=== PATIENT | male | born 1995 | race Caucasian/White ===

== ENCOUNTER 2017-07-31 | Emergency (ER) | payer OTHER ==
[2017-07-31 00:31] VITALS: BP 128/83; PULSE 72; TEMP 98.4; BMI 29.7
--- NOTE | 2017-07-31 00:36 | PDOC ---
History of Present Illness - General Chief Complaint: Sore Throat Stated Complaint: FEVER/COUGHING Time Seen by Provider: 07/31/17 00:35 History Source: Patient - History of Present Illness Initial Comments: 07/31/17 01:45 22 year old male with sore throat and headache x 2 days. denies fever, NVD, abdominal pain Past History - Past Medical History Allergies/Adverse Reactions: Allergies Allergy/AdvReac Type Severity Reaction Status Date / Time No Known Allergies Allergy Verified 07/31/17 00:31 Home Medications: Ambulatory Orders Fluticasone Prop 0.05% Nasal [Flonase -] 1 - 2 spray NS DAILY #1 spray.pump Ibuprofen 400 mg PO QID PRN #20 tablet 07/31/17 - Suicide/Smoking/Psychosocial Hx Smoking History: Never smoked Have you smoked in the past 12 months: No Information on smoking cessation initiated: No Hx Alcohol Use: No Drug/Substance Use Hx: No *Physical Exam - Vital Signs Last Vital Signs Temp Pulse Resp BP Pulse Ox 98.4 F 72 18 128/83 100 07/31/17 00:29 07/31/17 00:29 07/31/17 00:29 07/31/17 00:29 07/31/17 00:29 - Physical Exam General Appearance: Yes: Appropriately Dressed HEENT: positive: Pharyngeal Erythema, Nasal Congestion Respiratory/Chest: positive: Lungs Clear, Normal Breath Sounds Cardiovascular: positive: Regular Rhythm, Regular Rate Gastrointestinal/Abdominal: positive: Normal Bowel Sounds, Soft Musculoskeletal: positive: Normal Inspection Extremity: positive: Normal Capillary Refill, Normal Inspection, Normal Range of Motion *DC/Admit/Observation/Transfer Diagnosis at time of Disposition: Pharyngitis Qualifiers: Pharyngitis/tonsillitis etiology: unspecified etiology Qualified Code(s): J02.9 - Acute pharyngitis, unspecified - Discharge Dispostion Disposition: HOME - Prescriptions Prescriptions: Fluticasone Prop 0.05% Nasal [Flonase -] 1 - 2 spray NS DAILY #1 spray.pump Ibuprofen 400 mg PO QID PRN #20 tablet PRN Reason: Moderate Pain - Referrals Referrals: Alber Jones MD [Primary Care Provider] - 24 hours - Patient Instructions Printed Discharge Instructions: Viral Pharyngitis Additional Instructions: gargle with warm salty water. take ibuprofen 400 mg every 6 hours as prescribed. follow up with your doctor as soon as possible. return to the ED if symptoms worsen. - Post Discharge Activity Forms/Work/School Notes: Back to Work
[2017-07-31] MEDS ORDERED: ACETAMINOPHEN 500 MG TABLET (FP) PO ONE (00:48)
[2017-07-31] MEDS ORDERED: ACETAMINOPHEN 325 MG TABLET (FP) ONE (01:25)
== END 2017-07-31 02:04 | disposition home or self-care (01) ==
LOC: JER
DX: J02.9 Acute pharyngitis, unspecified (principal)
CPT/HCPCS: 87070; 87430; 99281-25